=== PATIENT | female | born 1940 | race Caucasian/White ===

== ENCOUNTER 2021-03-12 15:04 | Inpatient (IN) | payer MEDICARE ==
[~2021-03-12] VITALS: Ht 162.6 cm; Wt 41.5 kg
[2021-04-24] VITALS (12 sets, daily range): BP systolic 84–162; BP diastolic 39–72; PULSE 76–106; TEMP 97.6–98.5
[2021-04-24] MEDS ORDERED: 00186-0370-20 IH (07:23)
[2021-04-24] MEDS ORDERED: PROAIR HFA0.09 MG/AC IH (07:23)
[2021-04-24] MEDS ORDERED: FLONASE NASAL S16 GM NS (07:25)
[2021-04-24] MEDS ORDERED: PRINIVIL20 MG PO (07:26)
[2021-04-24] MEDS ORDERED: CEFTIN 250250 MG/TAB PO (07:28)
[2021-04-24] MEDS ORDERED: NYSTATIN CREAM15 GM TP (07:31)
[2021-04-24] MEDS ORDERED: PERIDEX (CHLOR480 ML MM (07:31)
[2021-04-24] MEDS ORDERED: TYLENOL 8 HR PO (07:32)
[2021-04-24] MEDS ORDERED: VITAMINC1000TA PO (07:33)
[2021-04-24] MEDS ORDERED: FOLIC ACID 40400 MCG PO (07:34)
[2021-04-24] MEDS ORDERED: NATURAL IRON65 MG PO (07:34)
[2021-04-24] MEDS ORDERED: TYLENOL PM EXTR1 TA1 PO (07:36)
[2021-04-24] MEDS ORDERED: ATROVENT I0.2 MG/1 M IH (07:37)
[2021-04-24] MEDS ORDERED: VITAMIN D31000 IU PO (07:37)
[2021-04-24] MEDS ORDERED: FIBERCON PO (07:38)
[2021-04-24] MEDS ORDERED: GERITOL COMPLET1 TA1 PO (07:39)
[2021-04-24] MEDS ORDERED: CLARITIN 1010 MG/TAB PO (07:40)
[2021-04-24] MEDS ORDERED: MELATONIN5 M1 PO (07:41)
[2021-04-24] MEDS ORDERED: MIRALAX PA17 GM/Dose PO (07:42)
[2021-04-24] MEDS ORDERED: CALCIUM 600600 MG PO (07:42)
--- NOTE | 2021-04-24 10:00 | NUR ---
Patient up from OR. Alert and oriented x 3. Assessment complete. RLE with brace in place. Aquacell dressing to right hip is CDI. Patient states decreased sensation to BLE d/t spinal. Patient is unable to feel touch from mid thigh down. Denies pain at this time. Tolerating ice chips. Post op VSS. Post op fluids infusing per orders. No further needs at this time.
--- NOTE | 2021-04-24 19:11 | NUR ---
Patient has done well throughout the day, up to BSC with x 2 assist and walker. Contacted Chika HIGGINS this afternoon for increase in pain meds d/t continued pain. Patient unable to void this afternoon, bladder scanned for 620ml of urine. New orders for straight cath. Patient denies needs at this time. Reported off to night cleaner
--- NOTE | 2021-04-24 20:00 | NUR ---
PATIENT IS ALERT AND ORIENTED X4. PATIENT HAS AQUACELL TO RIGHT HIP AN DKNEE IMMOBILIZER. PATIENT WAS ABLE TO URINATE AT [facility] COMMODE. PATIENT HAS INT IV TO THE LEFT HAND. PATIENT HAS SCDS AND TEDS ON AND RIGHT LEG ELEVATED. PAIN MEDS GIVEN PER ORDERS. NO FURTHER NEEDS AT THIS TIME. CALL LIGHT WITHIN REACH. HEAD TO TOE ASSESSMENT COMPLETE.
[2021-04-25 03:07] VITALS: BP 120/60; PULSE 77; TEMP 97.8
--- NOTE | 2021-04-25 06:11 | NUR ---
PATIENT DID WELL THROUGHOUT NIGHT. SLEPT MOST OF NIGHT. NO FURTHER NEEDS AT THIS TIME. WILL REPORT TO DAY SHIFT.
[2021-04-25 06:41] LABS: HEMATOCRIT 38.3 % (37.0-47.0); HEMOGLOBIN 12.2 g/dl (12.5-16.0)
[2021-04-25] MEDS ORDERED: ROXICODONE 55 MG/TAB PO (07:52)
[2021-04-25] MEDS ORDERED: ASPI325T6 PO (07:52)
[2021-04-25] MEDS ORDERED: TYLENOL 500MG500 MG PO (07:53)
[2021-04-25 08:00] VITALS: BP 155/66; PULSE 99; TEMP 98.7
--- NOTE | 2021-04-25 09:54 | NUR ---
telephone lineworker met with patient to discuss discharge plan. Patient came from [facility]. Perviously living with granddaughter Sienna ([phone]), but wanted to be placed into a facility to take responsibility off of her granddaughter.Patient uses a walker to ambulate. Patient has a son Anderw in [place] ([phone]) and another son in [facility] ([phone]). PCP is Dr. Verma and she uses [facility] in [place] for a pharmacy. Patient states she would like to go back to [place] with a goal of moving back in with her granddaughter Sienna. Patient unsure if she has a current DPOA-HC established since the passing of her long term care social worker partner in October 2019. *Discharge plan: [facility]*
[2021-04-25 11:17] VITALS: BP 139/84; PULSE 98; TEMP 98.2
--- NOTE | 2021-04-25 12:33 | NUR ---
Worker called [facility] and they are planning on taking the patient back once she is ready to d/c. Will need to fax updates when she is ready to go.
[2021-04-25 15:34] VITALS: BP 156/66; PULSE 107; TEMP 98.5
--- NOTE | 2021-04-25 19:10 | NUR ---
Patient has done well throughout the day. Has been up to restroom with SBA and steady gait with walker. Patient states pain well controlled with tylenol. Up to recliner throughout the day. Denies needs at this time. Will report off to manager shift.
--- NOTE | 2021-04-25 19:20 | NUR ---
Report received, assumed care for trust accounts supervisor. Assessment complete. A&Ox3. Denies pain/nausea/shortness of breath. VS stable. Assisted up to bathroom at this time-stand by with gait belt/walker. Ambulated approx 150 feet. Tolerated well. Aquacell to right hip-CDI. Technol brace on. JOAN james/SCDs. Plan of care discussed for this shift to include HS meds/pain control/calling for questions/concerns. Verbalizes understanding. Denies current needs. Call light in reach. Will monitor.
[2021-04-25 20:18] VITALS: BP 99/70; PULSE 115; TEMP 97.8
[2021-04-26] VITALS (8 sets, daily range): BP systolic 106–137; BP diastolic 43–64; PULSE 84–100; TEMP 97.5–98.6
--- NOTE | 2021-04-26 02:00 | NUR ---
Scheduled tylenol given per dr order. Denies pain/nausea. Has been up to bathroom several times-voiding without difficulty/+flatus. Denies current needs. Call light in reach. Will monitor.
[2021-04-26 08:19] LABS: HEMOGLOBIN 11.4 g/dl (12.5-16.0)
[2021-04-26 08:24] LABS: HEMATOCRIT 35.3 % (37.0-47.0)
--- NOTE | 2021-04-26 19:04 | NUR ---
Patient doing well throughout the day, denies pain at this time. Has been up to restroom with SBA and walker. Kye hose and SCDs to BLE. Aquacell to right hip remains CDI. Denies further needs at this time. Will report off to manufacturing supervisor 2nd shift.
--- NOTE | 2021-04-26 21:34 | NUR ---
Pt has been good. Pain rated 0/10. VSS. Will continue to monitor.
[2021-04-27 03:10] VITALS: BP 118/52; PULSE 81; TEMP 97.9
[2021-04-27 07:35] VITALS: BP 129/48; PULSE 104; TEMP 98.2
--- NOTE | 2021-04-27 12:20 | NUR ---
Pt had uneventful morning. Up to the restroom with SBA and walker. Pt denied any pain. Dressing to hip changed prior to discharge, discharge instructions and dressing instructions reviewed with the patient. IV to L hand dc'd catheter tip intact. Pt wheeled out of facility, son transporting her to [place] at this time.
== END 2021-04-27 12:22 | DRG 469 ==
LOC: INPTSU 04-24 05:26 → SURG 04-24 05:26 → SDCO 04-24 07:30 → EDSTATUS 04-24 07:30 → SURG 04-24 10:03
PROVIDERS: Physician Assistant; ADMIT Orthopaedic Surgery
PROC: 0SR90JZ Replacement of Right Hip Joint with Synthetic Substitute, Open Approach (ICD-10-PCS; principal; 2021-04-24 07:30)
DX: M16.11 Unilateral primary osteoarthritis, right hip (principal); E43 Unspecified severe protein-calorie malnutrition; Z68.1 Body mass index [BMI] 19.9 or less, adult; J44.9 Chronic obstructive pulmonary disease, unspecified; I10 Essential (primary) hypertension; M48.00 Spinal stenosis, site unspecified; D64.9 Anemia, unspecified; F41.9 Anxiety disorder, unspecified; Z88.0 Allergy status to penicillin
CPT/HCPCS: A9284; C1713; C1776; J0690; J1100; J2250; J2270; J2704; J3010; J7120; J7121; L1830